=== PATIENT | female | born 1970 | race African-American/Black ===

== ENCOUNTER 2018-07-30 21:34 | Emergency (ER) | payer OTHER ==
--- NOTE | 2018-07-30 21:55 | PDOC ---
Rapid Medical Evaluation Chief Complaint: Pain, Acute Time Seen by Provider: 07/30/18 21:50 Medical Evaluation: 07/30/18 21:50 c/o left arm pain x 4 days. history of neuropathy and carpal tunnel syndrome. send by dr. gomez for US to r/o DVT PE; patient alert ox3. limited rom to arm A: left elbow pain P: US r/o DVT patient to the ER for further management of care. 07/30/18 21:53 Discharge Disposition - Diagnosis Left arm pain - Referrals - Patient Instructions - Post Discharge Activity
[2018-07-30 21:59] VITALS: BMI 40.7
--- NOTE | 2018-07-30 22:41 | PDOC ---
Attending Attestation - Resident Resident Name: Estrellita Templeton - ED Attending Attestation I have performed the following: I have examined & evaluated the patient, The case was reviewed & discussed with the resident, I agree w/resident's findings & plan - HPI HPI: 07/30/18 22:45 Pt was sent by her neurologist for left arm swelling and pain. He wants her ruled out for DVT in the ER and for her to be admitted so that he can evaluate her further in the hospital in 24 hrs. Pt has no PMD here and she will be admitted to the hospitalist team. - Physicial Exam PE: 07/31/18 01:30 Agree with resident exam. Pt has no redness, infection or swelling of the left upper ext. Pt has no pain with passive ROM; she has scapula pain on the left side. Likely muscle spasm and strain and she has arthritis. - Medical Decision Making 07/31/18 00:25 Patient Name: IMER JONES THIS IS A PRELIMINARY REPORT FROM [facility] DATE OF SERVICE: 2018-07-30 22:47:59 IMAGES: 37 EXAM: VENOUS DUPLEX UNILATERAL No evidence for DVT left upper extremity. Pt states that she was at [facility] and that they treated her with Prednisone. Likely the cause of her elevated WBC and glc. Pt has elevated sed rate and crp. However, she has known arthritic disease. Pt will be given a copy of her blood tests and asked to follow with her neurologist. Heart Score/ECG Review - ECG Intrepretation Rhythm: Regular Rhythm - [place]: Normal - P and HI Delta Wave(s) Present: No WPW: No - QRS Poor R Wave Progression: No Q Wave Present: No - ST and T Early Repolarization: No Non Specific ST-T Wave changes: No
--- NOTE | 2018-07-30 22:50 | PDOC ---
History of Present Illness - General Chief Complaint: Pain, Acute Stated Complaint: ARM PAIN Time Seen by Provider: 07/30/18 21:50 History Source: Patient, Primary Care Provider Exam Limitations: No Limitations - History of Present Illness Initial Comments: 07/30/18 22:44 This is a 47 YOF with h/o diabetes, fibromyalgia, LUE tendinitis, and LUE carpal tunnel syndrome who was instructed by Dr. Nielsen to come to the ED for workup and admission for worsened chronic LUE pain. The patient herself notes ongoing LUE pain since January 2018, worse in the deltoid region but also in the elbow and throughout the entire arm. She denies any additional symptoms and never had this pain before in her life prior to January 2018. She was seen at [facility] two days ago and she states she had non-concerning workup. She followed up for a nerve conduction study and Dr. Nielsen became concerned that she may have either a LUE DVT or brachial plexopathy. He has requested admission and ED w/u including Duplex Venous LUE, ERIC, RH, ESR, CRP, and normal admission w/u. Past History - Past Medical History Allergies/Adverse Reactions: Allergies Allergy/AdvReac Type Severity Reaction Status Date / Time No Known Allergies Allergy Verified 07/30/18 22:37 Home Medications: Ambulatory Orders Albuterol Sulfate [Proair Respiclick] 90 mcg IH DAILY 07/31/18 Amlodipine Besylate 5 mg PO DAILY 07/31/18 Benzyl Benzoate 1 ml MC DAILY 07/31/18 Clindamycin 1% Gel [Cleocin *Gel*] 1 applic TP DAILY 07/31/18 Insulin Degludec [Tresiba Flextouch U-100] 40 unit SQ HS 07/31/18 Levocetirizine Dihydrochloride 5 mg PO HS 07/31/18 Losartan Potassium 100 mg PO DAILY 07/31/18 Methocarbamol [Robaxin -] 500 mg PO TID #45 tablet 07/31/18 Metoprolol Tartrate 25 mg PO HS 07/31/18 Metoprolol Tartrate 50 mg PO AM 07/31/18 Montelukast Na [Singulair -] 10 mg PO HS 07/31/18 Oxycodone HCl/Acetaminophen [Percocet 5-325 mg Tablet] 1 tab PO Q6H 07/31/18 Plecanatide [Trulance] 3 mg PO DAILY 07/31/18 Pravastatin Sodium [Pravachol (Nf)] 40 mg PO HS 07/31/18 Sitagliptin Phosphate [Januvia] 50 mg PO DAILY 07/31/18 Tramadol HCl 50 mg PO DAILY 07/31/18 Tretinoin/Emol 9/Skin Cleansr1 [Tretin-X 0.025% Cream Comb Pck] 1 each TP DAILY 07/31/18 Cancer: Yes COPD: No Diabetes: Yes HTN: Yes Thyroid Disease: Yes Other medical history: arthritis - Suicide/Smoking/Psychosocial Hx Smoking History: Never smoked Hx Alcohol Use: Yes (socially) Drug/Substance Use Hx: No Review of Systems - Review of Systems Able to Perform ROS?: Yes Constitutional: No: Chills, Fever, Unexplained wgt Loss HEENTM: No: Nose Congestion, Throat Pain Respiratory: No: Cough, Shortness of Breath Cardiac (ROS): No: Chest Pain, Palpitations ABD/GI: No: Constipated, Diarrhea, Nausea, Vomiting : No: Burning, Dysuria Musculoskeletal: Yes: Joint Pain (left shoulder and elbow), Joint Swelling ( left shoulder and elbow), Muscle Pain (left deltoid and triceps). No: Back Pain , Neck Pain Integumentary: No: Bruising, Rash Neurological: No: Headache, Numbness, Tingling, Weakness, Dizziness Endocrine: No: Unexplained Weight Gain, Unexplained Weight Loss *Physical Exam - Vital Signs Last Vital Signs Temp Pulse Resp BP Pulse Ox 98 F 74 18 159/85 98 07/30/18 21:50 07/30/18 21:50 07/30/18 21:50 07/30/18 21:50 07/30/18 21:50 - Physical Exam General Appearance: Yes: Nourished, Appropriately Dressed, Obese, Other (alert, oriented, well appearing, wearing LUE sling, answering questions appropriately) . No: Apparent Distress HEENT: positive: EOMI, DANYELLE, Normal ENT Inspection, Normal Voice, Hearing Grossly Normal. negative: Scleral Icterus (R), Scleral Icterus (L), Nasal Congestion Neck: positive: Trachea midline, Supple, Tender lateral (mild left posterior lateral neck pain). negative: Tender, Rigid, Tender midline Respiratory/Chest: positive: Lungs Clear, Normal Breath Sounds. negative: Respiratory Distress, Crackles, Rhonchi, Stridor, Wheezing Cardiovascular: positive: Regular Rhythm, Regular Rate, Edema (trace LUE non- pitting). negative: Murmur Comments:: radial pulses 2+ and equal bilaterally Gastrointestinal/Abdominal: positive: Normal Bowel Sounds, Soft. negative: Tender, Organomegaly, Pulsatile Mass, Guarding Musculoskeletal: positive: Normal Inspection. negative: Decreased Range of Motion, Vertebral Tenderness Extremity: positive: Normal Capillary Refill, Tender (diffuse LUE ttp worse in the upper arm but also present in the elbow and forearm and wrist), Other (mild swelling diffusely to LUE compared to right, few scabbed excoriations to posterior/lateral proximal LUE which patient states have been there for months) . negative: Cyanosis Integumentary: positive: Normal Color, Dry, Warm, Other (trace LUE rash as noted on extremity exam). negative: Erythema, Rash, Bruising Neurologic: positive: sales marketing director II-XII NML intact, Fully Oriented, Alert, Normal Mood/ Affect, Normal Response, Motor Strength 5/5 Heart Score/ECG Review #1 Sinus rhythm, rate of 61, normal axis and intervals, TW flattening in III, otherwise no ST-T changes ED Treatment Course - LABORATORY CBC & Chemistry Diagram: 07/31/18 00:02 07/31/18 00:02 - RADIOLOGY Radiology Studies Ordered: Category Date Time Status CHEST PA & LAT [RAD] Stat Radiology 07/30/18 22:36 Ordered ELBOW-LEFT [RAD] Stat Radiology 07/30/18 22:36 Ordered Medical Decision Making - Medical Decision Making Adult female patient p/w LUE pain and swelling which is chronic but acutely worse over the past few days. Her neurologist Dr. Nielsen sent her for admission and workup. Initial Vital Signs Temp Pulse Resp BP Pulse Ox 98 F 74 18 159/85 98 07/30/18 21:50 07/30/18 21:50 07/30/18 21:50 07/30/18 21:50 07/30/18 21:50 Exam: As noted in Physical Exam section. DDX IBNLT: LUE DVT, brachial plexopathy, rheumatologic condition, subclavian steal, pancoast tumor, rheumatologic condition (e.g. rheumatoid arthritis), chronic or subacute LUE fracture, cellulitis, osteoarthritis, etc. W/U ordered: CBCD CMP Coags ERIC RH ESR CRP CXR Duplex venous LUE EKG XR Elbow/ Shoulder TX ordered: None Patient's PCP is [facility] provider Kita Barber. Patient's care is endorsed to night team resident Zo De La Rosa at the end of my shift. Patient is pending labs, US, x-rays, and needs admission to [facility] as she has outside provider without admission privileges. Consult order has already been placed to Dr. Nielsen. *DC/Admit/Observation/Transfer Diagnosis at time of Disposition: Left arm pain, Arthritis, Muscle strain - Discharge Dispostion Disposition: HOME Condition at time of disposition: Guarded - Prescriptions Prescriptions: Methocarbamol [Robaxin -] 500 mg PO TID #45 tablet - Referrals Referrals: ON STAFF,NOT [Primary Care Provider] - - Patient Instructions Printed Discharge Instructions: Getting on the Road to Whole Grains, Eating a Diet Rich in Fruits and Vegetables, Muscle Strain, DI for Osteoarthritis Additional Instructions: BUY YOURSELF A [employer] JUICER TO MAKE FRESH FRUI AND VEGETABLE JUICES EVERY DAY DIET CHANGE You were seen today for evaluation of your left arm pain. Your X-ray of your left elbow revealed no fracture. Your X-ray of your left shoulder revealed no fracture. Your ultrasound of your left arm revealed no blood clot. Your chest X-ray was normal. A copy of your lab work is included in your discharge paperwork. I have sent a prescription for a muscle relaxer to your pharmacy. Take as advised. Follow up with Dr. Nielsen. Call their office thursday and make an appointment for this coming week. Bring the paperwork given to you today with you to your appointment. Follow up with Dr. Nielsen. Call his office thursday and make an appointment for this coming week. Bring the paperwork given to you today with you to your appointment. Return to the Emergency Department for chest pain, shortness of breath, paleness of your hand, increasing pain, nausea, vomiting, weakness or any other new, worsening or concerning symptoms. - Post Discharge Activity Forms/Work/School Notes: Back to Work
--- NOTE | 2018-07-31 00:04 | PDOC ---
*Physical Exam - Vital Signs Last Vital Signs Temp Pulse Resp BP Pulse Ox 98 F 74 18 159/85 98 07/30/18 21:50 07/30/18 21:50 07/30/18 21:50 07/30/18 21:50 07/30/18 21:50 - Physical Exam Comments: 07/31/18 00:11 Constitutional: Well-nourished, Well-developed, appearing stated age. HEENT: head is normocephalic, atraumatic. EOMI. PERRLA. Neck: supple. Full ROM. Heart: regular rhythm. no murmurs, rubs or gallops. Lungs: clear to auscultation bilaterally. no crackles, rhonchi or wheezing. no stridor. Abdomen: soft, nontender. normal bowel sounds. no rebound, guarding, masses. Extremities: Pain to palpation of left upper extremity at the tricep, forearm, shoulder. Pt is able to fully flex and extend elbow, but reports pain in proximal forearm and tricep when doing so. ROM of left shoulder limited due to pain. Peripheral pulses intact and equal. Pitting edema to right and left lower extremity. Neurological: CN 2-12 grossly intact. Moves all four extremities. Psych: awake, alert, oriented x3. Follows commands. Answers questions appropriately. Skin: multiple hyperpigemented round lesions to left upper extremity and right lower extremity. <Zo De La Rosa - Last Filed: 07/31/18 01:27> - Vital Signs Last Vital Signs Temp Pulse Resp BP Pulse Ox 98 F 74 18 159/85 98 07/30/18 21:50 07/30/18 21:50 07/30/18 21:50 07/30/18 21:50 07/30/18 21:50 <Jeanne Mcgovern - Last Filed: 07/31/18 01:32> Heart Score/ECG Review - ECG Impressions Comment:: 07/31/18 00:55 Rate 61. regular rhythm. normal axis. no acute ST changes. <Zo De La Rosa - Last Filed: 07/31/18 01:27> ED Treatment Course - LABORATORY CBC & Chemistry Diagram: 07/31/18 00:02 07/31/18 00:02 <Zo De La Rosa - Last Filed: 09/08/18 01:27> - LABORATORY CBC & Chemistry Diagram: 07/31/18 00:02 07/31/18 00:02 - ADDITIONAL ORDERS Additional order review: Laboratory Results 07/31/18 07/31/18 00:02 00:02 PT with INR 11.10 INR 0.98 Sodium 133 L Potassium 4.4 Chloride 96 L Carbon Dioxide 29 Anion Gap 8 BUN 46 H Creatinine 1.9 H Creat Clearance w eGFR 28.21 Random Glucose 387 H* Calcium 8.5 Phosphorus 3.6 Magnesium 2.3 Total Bilirubin 0.2 AST 24 ALT 28 Alkaline Phosphatase 130 H C-Reactive Protein 0.6 H Total Protein 6.8 Albumin 2.9 L Rheumatoid Factor < 10.0 07/31/18 00:02 RBC 4.20 MCV 83.1 MCHC 33.2 RDW 15.4 MPV 9.8 Neutrophils % 83.0 H Lymphocytes % 8.8 Monocytes % 7.7 Eosinophils % 0.1 Basophils % 0.4 - Medications Given in the ED: ED Medications Discontinued Medications Generic Name Dose Route Start Last Admin Trade Name Devante PRN Reason Stop Dose Admin Insulin Human Regular 4 units 07/31/18 00:45 07/31/18 01:01 Novolin R Vial *For Ivpush Or Iv Drip Only* IVPUSH 07/31/18 00:46 4 unit ONCE ONE Administration <Jeanne Mcgovern - Last Filed: 07/31/18 01:32> Medical Decision Making - Medical Decision Making 07/31/18 00:04 47 YOF with h/o diabetes, fibromyalgia, RUE tendinitis, and RUE carpal tunnel syndrome, RUE ulnar neuropathy who was instructed by Dr. Nielsen to come to the ED for workup for worsened chronic LUE pain. The patient herself notes ongoing LUE pain since January 2018, worse in the deltoid region but also in the elbow and throughout the entire arm. She describes the pain as "throbbing", worse with movement, better with rest, worsening over the last four days. She denies any additional symptoms and never had this pain before in her life prior to January 2018. She was seen at [facility] two days ago and she states she had non- concerning workup. She followed up for a nerve conduction study and Dr. Nielsen became concerned that she may have either a LUE DVT or brachial plexopathy. He has requested admission and ED w/u including Duplex Venous LUE, EIRC, RH, ESR, CRP, and normal admission w/u. She states Dr. Nielsen gave her Toradol without relief of her symptoms. She states she took 1 Tramadol around 3 pm and 1 Valium 5 mg around 430 pm without relief of her symptoms. Pending CXR, L shoulder XR, L elbow XR, LUE DVT study, labs. 07/31/18 00:42 Left shoulder XR - no evidence of acute fracture Left elbow XR - no evidence of acute fracture Left UE US - no evidence of DVT CXR negative. Leukocytosis - 12.8 Cr - 1.9 CRP - 0.6 Rheumatoid factor negative ESR - 69 07/31/18 01:06 Glucose 387 4 units regular insulin ordered. 07/31/18 01:20 Dr. Nielsen was paged. <Zo De La Rosa - Last Filed: 07/31/18 01:27> *DC/Admit/Observation/Transfer - Discharge Dispostion Decision to Admit order: No <Zo De La Rosa - Last Filed: 07/31/18 01:27> <Jeanne Mcgovern - Last Filed: 07/31/18 01:32> Diagnosis at time of Disposition: Left arm pain, Arthritis, Muscle strain - Discharge Dispostion Disposition: HOME Condition at time of disposition: Guarded - Prescriptions Prescriptions: Methocarbamol [Robaxin -] 500 mg PO TID #45 tablet - Referrals Referrals: ON STAFF,NOT [Primary Care Provider] - - Patient Instructions Printed Discharge Instructions: Getting on the Road to Whole Grains, Eating a Diet Rich in Fruits and Vegetables, Muscle Strain, DI for Osteoarthritis Additional Instructions: BUY YOURSELF A [employer] TO MAKE FRESH FRUI AND VEGETABLE JUICES EVERY DAY DIET CHANGE You were seen today for evaluation of your left arm pain. Your X-ray of your left elbow revealed no fracture. Your X-ray of your left shoulder revealed no fracture. Your ultrasound of your left arm revealed no blood clot. Your chest X-ray was normal. A copy of your lab work is included in your discharge paperwork. I have sent a prescription for a muscle relaxer to your pharmacy. Take as advised. Follow up with Dr. Nielsen. Call their office thursday and make an appointment for this coming week. Bring the paperwork given to you today with you to your appointment. Follow up with Dr. Nielsen. Call his office thursday and make an appointment for this coming week. Bring the paperwork given to you today with you to your appointment. Return to the Emergency Department for chest pain, shortness of breath, paleness of your hand, increasing pain, nausea, vomiting, weakness or any other new, worsening or concerning symptoms. - Post Discharge Activity Forms/Work/School Notes: Back to Work
[2018-07-31 00:20] LABS: BASO % 0.4 % (0-2.0); EOS % 0.1 % (0-4.5); HEMATOCRIT 34.9 % (32.4-45.2); HEMOGLOBIN 11.6 GM/dL (10.7-15.3); LYMPH % 8.8 % (8-40); MCH 27.6 pg (25.7-33.7); MCHC 33.2 g/dl (32.0-36.0); MEAN CELL VOLUME 83.1 fl (80-96); MEAN PLT VOLUME 9.8 fl (7.5-11.1); MONO % 7.7 % (3.8-10.2); PLATELET COUNT 236 K/MM3 (134-434); RDW 15.4 % (11.6-15.6); WHITE BLOOD COUNT 12.8 K/mm3 (4.0-10.0)
[2018-07-31 00:24] LABS: INR 0.98 (0.83-1.09); PROTHROMBIN TIME (PATIENT) 11.1 SEC (9.7-13.0)
[2018-07-31 00:33] LABS: ALBUMIN 2.9 g/dl (3.4-5.0); ANION GAP 8 MMOL/L (8-16); BILIRUBIN,TOTAL 0.2 mg/dL (0.2-1.0); BLOOD UREA NITROGEN 46 mg/dL (7-18); CALCIUM 8.5 mg/dL (8.5-10.1); CHLORIDE 96 mmol/L (98-107); CO2 29 mmol/L (21-32); CREATININE 1.9 mg/dL (0.55-1.02); MAGNESIUM 2.3 mg/dL (1.8-2.4); PHOSPHOROUS 3.6 mg/dL (2.5-4.9); POTASSIUM 4.4 mmol/L (3.5-5.1); SGOT/AST 24 U/L (15-37); SGPT/ALT 28 U/L (12-78); SODIUM 133 mmol/L (136-145); TOT PROT 6.8 g/dl (6.4-8.2)
[2018-07-31 00:34] LABS: ALK PHOS 130 U/L (45-117)
[2018-07-31 00:40] LABS: GLUCOSE,RANDOM 387 mg/dL (74-106)
[2018-07-31] MEDS ORDERED: INSULIN REGULAR HUMAN 100 UNITS/ML *VIAL IVPUSH ONE ×2 (00:45→02:21)
[2018-07-31] MEDS ORDERED: INSULIN REGULAR HUMAN 100 UNITS/ML *VIAL ONE (00:55)
[2018-07-31 01:02] LABS: ERYTHROCYTE SEDIMENTATION RATE 69 mm/hr (0-20)
[2018-07-31 01:59] VITALS: BP 136/78; PULSE 89; TEMP 98.5
--- NOTE | 2018-08-02 11:11 | EKG ---
Test Reason : Blood Pressure : / mmHG Vent. Rate : 061 BPM Atrial Rate : 061 BPM P-R Int : 148 ms QRS Dur : 090 ms QT Int : 402 ms P-R-T Axes : 052 039 035 degrees QTc Int : 404 ms NORMAL SINUS RHYTHM NORMAL ECG NO PREVIOUS ECGS AVAILABLE Confirmed by VINEET CRUZ MD ([id number]) on 08/02/2018 11:10:38 AM Referred By: Confirmed By:VINEET CRUZ MD
== END 2018-07-31 01:20 | disposition home or self-care (01) ==
LOC: JER 21:34
PROC: 3E033VG Introduction of Insulin into Peripheral Vein, Percutaneous Approach (ICD-10-PCS; principal; 2018-07-30)
DX: S46.812A Strain of other muscles, fascia and tendons at shoulder and upper arm level, left arm, initial encounter (principal); X58.XXXA Exposure to other specified factors, initial encounter; Y93.89 Activity, other specified; Y92.89 Other specified places as the place of occurrence of the external cause; Y99.8 Other external cause status; M19.90 Unspecified osteoarthritis, unspecified site; E11.9 Type 2 diabetes mellitus without complications; Z79.4 Long term (current) use of insulin; M79.7 Fibromyalgia; G56.01 Carpal tunnel syndrome, right upper limb
CPT/HCPCS: 36415; 71046-TC-FY; 73030-TC-LT-FY; 73070-TC-LT-FY; 80053; 83735; 84100; 85025; 85610; 85651; 86038; 86140; 86431; 93005; 93010; 93971; 99282-25